=== PATIENT | female | born 1995 | race Two or more races ===

== ENCOUNTER 2018-10-30 12:39 | Emergency (ER) | payer OTHER ==
[~2018-10-30] VITALS: Ht 172.7 cm; Wt 61.2 kg
[2018-10-30 12:47] VITALS: BP 108/69
--- NOTE | 2018-10-30 12:51 | NUR ---
SEEN AND EXAMINED BY DR. MALONE.
--- NOTE | 2018-10-30 13:15 | NUR ---
Patient discharged to home in stable condition. Written and verbal after care instructions given. Patient verbalizes understanding of instruction.
== END 2018-10-30 13:16 | disposition home or self-care (01) ==
LOC: ER 12:44
DX: F41.0 Panic disorder [episodic paroxysmal anxiety] (principal); M62.838 Other muscle spasm; G62.9 Polyneuropathy, unspecified; F32.9 Major depressive disorder, single episode, unspecified; F10.10 Alcohol abuse, uncomplicated; Y90.9 Presence of alcohol in blood, level not specified